=== PATIENT | male | born 1985 | race Caucasian/White ===

== ENCOUNTER → 2017-05-30 | Outpatient (CLI) | payer OTHER | END | disposition home or self-care (01) | LOC: C.LAB1850 13:07 | PROVIDERS: ATTEND Physical Medicine & Rehabilitation | DX: R19.7 Diarrhea, unspecified (principal) ==

== ENCOUNTER → 2017-10-16 | Outpatient (CLI) | payer OTHER ==
[~2017-10-16] MED LIST: CETI10TA84 PO
[2017-10-16 10:34] LABS: BASO % 0.7 %; BASO ABS # 0.04 K/uL (0-0.2); EOS % 2.6 %; EOS ABS # 0.15 K/uL (0-0.5); HEMATOCRIT 45.4 % (42-52); HEMOGLOBIN 15.5 g/dL (14.0-18.0); IG# 0.01 K/uL (0.00-0.02); LYMPH % 33.7 %; LYMPH ABS # 1.94 K/uL (1.2-3.4); MEAN CELL VOLUME 87.6 fL (80-100); MEAN CORPUSCULAR HEMOGLOBIN 29.9 pg (25-34); MEAN CORPUSCULAR HGB CONC 34.1 g/dl (32-36); MEAN PLATELET VOLUME 12.1 fL (7.4-10.4); MONO % 8.3 %; MONO ABS # 0.48 K/uL (0.11-0.59); NEUT % 54.5 %; NEUT ABS # 3.14 K/uL (1.4-6.5); PLATELET COUNT 236 K/uL (130-400); RED CELL DISTRIBUTION WIDTH CV 12.4 % (11.5-14.5); RED CELL DISTRIBUTION WIDTH SD 39.8 fL (36.4-46.3); WHITE BLOOD COUNT 5.76 K/uL (4.8-10.8)
[2017-10-16 10:54] LABS: ALBUMIN 3.7 gm/dl (3.4-5.0); TOTAL PROTEIN 7.3 gm/dl (6.4-8.2)
--- NOTE | 2017-11-07 13:49 | CODING QUERY NO DIAGNOSIS ---
TREATMENT RENDERED WITHOUT A DIAGNOSIS To promote full compliance with coding requirements relating to patient care, physician participation is requested in all cases of pre coder uncertainty. Please assist us with providing a diagnosis/symptom for the test(s) below: A diagnosis/symptom was not documented on your Order. A valid diagnosis/symptom is required to bill all insurances. Please remember that we are unable to code a diagnosis of rule out, probable, possible, questionable, or suspected. Tests that require a diagnosis: DOS: 10/16/17 * CBC W/ AUTO DIFF DIAGNOSIS: * ERYTHROCYTE SEDIMENTATION RATE DIAGNOSIS: * C-REACTIVE PROTEIN DIAGNOSIS: * LIVER PROFILE DIAGNOSIS: Provider Signature: Date: Thank you Ashli Hurd Health Information Management Once completed, please kindly fax back to [phone] For questions please call [phone]
== END | disposition home or self-care (01) ==
LOC: C.LAB1850 09:21
PROVIDERS: ATTEND Family Medicine
DX: K92.1 Melena (principal)

== ENCOUNTER → 2017-10-30 | Outpatient (CLI) | payer OTHER | END | disposition home or self-care (01) | LOC: C.LAB1850 11:15 | PROVIDERS: ATTEND Registered Nurse | DX: K62.5 Hemorrhage of anus and rectum (principal); R79.82 Elevated C-reactive protein (CRP) ==

== ENCOUNTER → 2017-11-21 | Day surgery (SDC) | payer OTHER ==
[2017-11-14 14:17] VITALS: Ht 167.6 cm; Wt 65.9 kg
[~2017-11-21] VITALS: Ht 167.6 cm; Wt 65.9 kg
[~2017-11-21] MED LIST changes: +LIDOCAINE HCL 2% 2 ML VIAL (20MG/ML) ONE; +MIDAZOLAM HCL 1 MG/ML 2ML VIAL ONE; +ONDANSETRON INJ 2 MG/ML 2 ML VIAL ONE; +PROPOFOL IV EMULSION 10 MG/ML 20 ML VIAL ONE; +SODIUM CHLORIDE 0.9% 500ML 500 ML IV ONE
--- NOTE | 2017-11-21 13:30 | Endo History and Physical ---
History & Physical Date of Service: Nov 21, 2017. Chief Complaint: Bright red blood per rectum, chronic anal fissure Referring Physician: Bernard History of Present Illness 32 yo CM who presents for EGD and Colonoscopy secondary to Bright red blood per rectum, Elevated CRP and Chronic anal fissure. Past Surgical History Hx Cardiac Surgery: No Hx Internal Defibrillator: No Hx Pacemaker: No Hx Abdominal Surgery: No Hx of Implantable Prosthesis: No Hx Post-Op Nausea and Vomiting: No Hx Cancer Surgery: No Hx Thoracic Surgery: No Hx Orthopedic: No Hx Urinary Tract Surgery: No Family History Colon CA, IBD Social History Smoking Status: Never Smoker Hx Substance Use: No Hx Alcohol Use: Yes (OCCASIONAL) Allergies Coded Allergies: No Known Allergies (Unverified , 11/14/17) Current Medications Reported Home Medications Medications Dose Route/Sig Max Daily Dose Days Date Category Zyrtec (Cetirizine HCl) 10 Mg Tab 10 Mg PO DAILY PRN 11/14/17 Reported Vital Signs Weight (Kilograms): 65.91 Height (Feet): 5 Height (Inches): 6 Date Time Temp Pulse Resp B/P (MAP) Pulse Ox O2 Delivery O2 Flow Rate FiO2 11/21/17 13:02 36.7 73 16 127/79 (95) 96 Room Air Physical Exam General Appearance: WD/WN, no apparent distress Respiratory/Chest: Auscultation: breath sounds normal Cardiovascular: Heart Auscultation: RRR Abdomen: Bowel Sounds: normal Inspection & Palpation: soft, non-distended, no tenderness, guarding & rebound Assessment and Plan Assessment: 32 yo CM who presents for EGD and Colonoscopy secondary to Bright red blood per rectum, Elevated CRP and Chronic anal fissure. Plan: Proceed with EGD and colonoscopy.
--- NOTE | 2017-11-21 14:29 | Discharge Instructions ---
Endoscopy Patient Instructions Date / Procedure(s) Performed Nov 21, 2017. Colonoscopy, EGD Allergy Information Coded Allergies: No Known Allergies (Unverified , 11/14/17) Discharge Date / Findings Nov 21, 2017. Colonoscopy: Colon polyp EGD: Esophagitis, Hiatal hernia, Gastritis with biopsies, Duodenal biopsies Medication Instructions 1) Start Protonix 40mg by mouth each morning 1/2 hour prior to breakfast. 2) OK to resume all other medications today as prescribed Reported Home Medications Medications Dose Route/Sig Max Daily Dose Days Date Category Zyrtec (Cetirizine HCl) 10 Mg Tab 10 Mg PO DAILY PRN 11/14/17 Reported Provider Instructions Activity Restrictions - No exercising or heavy lifting for 24 hours. - Do not drink alcohol the day of the procedure. - Do not drive a car or operate machinery until the day after the procedure. - Do not make any important decisions or sign important papers in 24 hours after the procedure. Following Day: - Return to full activity which may include returning to work/school. Diet Start your diet with liquids and light foods (jello, soup, juice, toast). Then eat your usual diet if not nauseated. Treatment For Common After Affects For mild abdominal pain, bloating, or excessive gas: - Rest - Eat lightly - Lie on right side Follow-Up Information Follow-up with Bernard as scheduled Anesthesia Information What You Should Know You have had a procedure that required some medicine to reduce anxiety and discomfort. This treatment is called moderate sedation. After receiving the treatment, you may be sleepy, but you will be able to breathe on your own. The effects of the treatment may last for several hours. Follow these instructions along with Activity/Diet recommendations noted above: * Do NOT do anything where dizziness or clumsiness would be dangerous. * Rest quietly at home today, then you can be up and about tomorrow. * Have a responsible person stay with you the rest of today. * You may have had an I.V. today. If so, you may take the dressing off later today. Recommendations Call your doctor if: * Trouble breathing * Continuous vomiting for more than 24 hours * Temperature above 101 degrees * Severe abdominal pain or bloating * Pain not relieved by pain medicine ordered * There is increased drainage or redness from any incision * A large amount of rectal bleeding greater than 2-3 tablespoons. (If you had a polyp/s removed or have hemorrhoids, a small amount of blood - from the rectum is to be expected.) * You have any unanswered questions or concerns. IN THE EVENT OF A SERIOUS EMERGENCY, GO TO THE NEAREST EMERGENCY ROOM Your discharge instructions were prepared by provider Matthew Ng. Patient Instructions Signature Page Miguel Richards Patient (or Guardian) Signature/Date: I have read and understand the instructions given to me by my caregivers. Caregiver/RN/Doctor Signature/Date: The above-named patient and/or guardian has received patient instructions on this date. + Original Patient Signature Page (only) stays with chart. Please make copy for patient.
--- NOTE | 2017-11-21 14:39 | GI REPORT ---
Patient Name: Miguel Richards Procedure Date: 11/21/2017 12:58 PM Date of : 1985 Admit Type: Outpatient Age: 32 Gender: Male Attending MD: Matthew Ng DO Procedure: Upper GI endoscopy Providers: Matthew Ng DO Referring MD: Kaye Stewart Indications: Gastrointestinal bleeding of unknown origin Medicines: Monitored Anesthesia Care Complications: No immediate complications. Estimated Blood Loss: Estimated blood loss: none. Procedure: Pre-Anesthesia Assessment: - Prior to the procedure, a History and Physical was performed, and patient medications and allergies were reviewed. The patient's tolerance of previous anesthesia was also reviewed. The risks and benefits of the procedure and the sedation options and risks were discussed with the patient. All questions were answered, and informed consent was obtained. Prior Anticoagulants: The patient has taken no previous anticoagulant or antiplatelet agents. ASA Grade Assessment: I - A normal, healthy patient. After reviewing the risks and benefits, the patient was deemed in satisfactory condition to undergo the procedure. After obtaining informed consent, the endoscope was passed under direct vision. Throughout the procedure, the patient's blood pressure, pulse, and oxygen saturations were monitored continuously. The scope was introduced through the mouth, and advanced to the second part of duodenum. The upper GI endoscopy was accomplished without difficulty. The patient tolerated the procedure well. Findings: LA Grade B (one or more mucosal breaks greater than 5 mm, not extending between the tops of two mucosal folds) esophagitis with no bleeding was found. A small hiatal hernia was present. Localized moderate inflammation characterized by erythema was found in the gastric antrum. Biopsies were taken with a cold forceps for histology. Localized moderately scalloped mucosa was found in the second portion of the duodenum. Biopsies for histology were taken with a cold forceps for evaluation of celiac disease. Impression: - LA Grade B reflux esophagitis. - Small hiatal hernia. - Gastritis. Biopsied. - Scalloped mucosa was found in the duodenum, consistent with celiac disease. Biopsied. Recommendation: - Resume previous diet. - Continue present medications. - Await pathology results. - Return to primary care physician as previously scheduled. Matthew Ng DO 11/21/2017 2:39:35 PM This report has been signed electronically. Note Initiated On: 11/21/2017 12:58 PM Number of Addenda: 0 I attest to the content of the Intraoperative Record and orders documented therein, exceptions below {[id number]}
[2017-11-21 14:42] VITALS: BP 120/70; PULSE 72; O2SAT 98
--- NOTE | 2017-11-21 14:44 | GI REPORT ---
Patient Name: Miguel Richards Procedure Date: 11/21/2017 1:07 PM Date of : 1985 Admit Type: Outpatient Age: 32 Gender: Male Attending MD: Matthew Ng DO Procedure: Colonoscopy Providers: Matthew Ng DO Referring MD: Kaye Stewart Indications: Rectal bleeding Medicines: Monitored Anesthesia Care Complications: No immediate complications. Estimated Blood Loss: Estimated blood loss: none. Procedure: Pre-Anesthesia Assessment: - Prior to the procedure, a History and Physical was performed, and patient medications and allergies were reviewed. The patient's tolerance of previous anesthesia was also reviewed. The risks and benefits of the procedure and the sedation options and risks were discussed with the patient. All questions were answered, and informed consent was obtained. Prior Anticoagulants: The patient has taken no previous anticoagulant or antiplatelet agents. ASA Grade Assessment: I - A normal, healthy patient. After reviewing the risks and benefits, the patient was deemed in satisfactory condition to undergo the procedure. After I obtained informed consent, the scope was passed under direct vision. Throughout the procedure, the patient's blood pressure, pulse, and oxygen saturations were monitored continuously. The scope was introduced through the anus and advanced to the terminal ileum. The colonoscopy was performed without difficulty. The patient tolerated the procedure well. The quality of the bowel preparation was good. The terminal ileum, ileocecal valve, appendiceal orifice, and rectum were photographed. Findings: The perianal and digital rectal examinations were normal. A 9 mm polyp was found in the ascending colon. The polyp was flat. The polyp was removed with a piecemeal technique using a hot snare. Resection and retrieval were complete. Impression: - One 9 mm polyp in the ascending colon, removed piecemeal using a hot snare. Resected and retrieved. Recommendation: - Resume previous diet. - Continue present medications. - Repeat colonoscopy for surveillance based on pathology results. - Return to primary care physician as previously scheduled. Matthew Ng DO 11/21/2017 2:43:45 PM This report has been signed electronically. Note Initiated On: 11/21/2017 1:07 PM Number of Addenda: 0 I attest to the content of the Intraoperative Record and orders documented therein, exceptions below {[id number]}
--- NOTE | 2017-11-21 15:04 | Anesthesiology Progress Note ---
Anesthesia Post Op Note Date & Time Nov 21, 2017 at 15:04 Vital Signs Pain Intensity: 0 Vital Signs Past 12 Hours Date Time Temp Pulse Resp B/P (MAP) Pulse Ox O2 Delivery O2 Flow Rate FiO2 11/21/17 14:42 72 20 120/70 (87) 98 Room Air 11/21/17 14:27 92 16 110/68 (82) 97 Room Air 11/21/17 14:12 92 16 94/55 (68) 97 Room Air 11/21/17 13:02 36.7 73 16 127/79 (95) 96 Room Air Notes Mental Status: alert / awake / arousable, participated in evaluation Pt Amnestic to Procedure: Yes Nausea / Vomiting: adequately controlled Pain: adequately controlled Airway Patency, RR, SpO2: stable & adequate BP & HR: stable & adequate Hydration State: stable & adequate Anesthetic Complications: no major complications apparent
== END | disposition home or self-care (01) ==
LOC: C.GI 12:27
PROVIDERS: ATTEND Internal Medicine
DX: K60.1 Chronic anal fissure (principal); D12.2 Benign neoplasm of ascending colon; K62.5 Hemorrhage of anus and rectum; K29.80 Duodenitis without bleeding; K29.60 Other gastritis without bleeding; K21.0 Gastro-esophageal reflux disease with esophagitis; K44.9 Diaphragmatic hernia without obstruction or gangrene; Z88.0 Allergy status to penicillin

== ENCOUNTER → 2017-12-04 | Outpatient (CLI) | payer OTHER ==
[~2017-12-04] MED LIST changes: -LIDOCAINE HCL 2% 2 ML VIAL (20MG/ML) ONE; -MIDAZOLAM HCL 1 MG/ML 2ML VIAL ONE; -ONDANSETRON INJ 2 MG/ML 2 ML VIAL ONE; -PROPOFOL IV EMULSION 10 MG/ML 20 ML VIAL ONE; -SODIUM CHLORIDE 0.9% 500ML 500 ML IV ONE
[2017-12-04 15:44] LABS: BASO % 0.5 %; BASO ABS # 0.03 K/uL (0-0.2); EOS % 1.1 %; EOS ABS # 0.07 K/uL (0-0.5); HEMATOCRIT 43.2 % (42-52); HEMOGLOBIN 14.9 g/dL (14.0-18.0); IG# 0.01 K/uL (0.00-0.02); LYMPH % 26.8 %; LYMPH ABS # 1.69 K/uL (1.2-3.4); MEAN CELL VOLUME 86.9 fL (80-100); MEAN CORPUSCULAR HGB CONC 34.5 g/dl (32-36); MEAN PLATELET VOLUME 12.2 fL (7.4-10.4); MONO % 8.6 %; MONO ABS # 0.54 K/uL (0.11-0.59); NEUT % 62.8 %; NEUT ABS # 3.97 K/uL (1.4-6.5); PLATELET COUNT 245 K/uL (130-400); RED CELL DISTRIBUTION WIDTH CV 12.7 % (11.5-14.5); RED CELL DISTRIBUTION WIDTH SD 40.4 fL (36.4-46.3); WHITE BLOOD COUNT 6.31 K/uL (4.8-10.8)
[2017-12-04 16:22] LABS: ALKALINE PHOSPHATASE 102 U/L (45-117); ALT/SGPT 28 U/L (12-78); AST/SGOT 19 U/L (15-37); BLOOD UREA NITROGEN 10 mg/dl (7-18); CALCIUM 8.9 mg/dl (8.5-10.1); CARBON DIOXIDE 29 mmol/L (21-32); CREATININE 0.82 mg/dl (0.60-1.40); GLUCOSE 94 mg/dl (70-99); POTASSIUM 3.5 mmol/L (3.5-5.1); SODIUM 139 mmol/L (136-145); TOTAL PROTEIN 7.4 gm/dl (6.4-8.2); TRANSFERRIN 264 mg/dl (200-360)
== END | disposition home or self-care (01) ==
LOC: MERGE 14:56 → C.LAB1850 14:56
PROVIDERS: ATTEND Registered Nurse
DX: K90.0 Celiac disease (principal)

== ENCOUNTER → 2017-12-04 | Outpatient (CLI) | payer OTHER | END | disposition home or self-care (01) | LOC: C.MAMM 14:18 | PROVIDERS: ATTEND Registered Nurse | DX: K90.0 Celiac disease (principal); M81.0 Age-related osteoporosis without current pathological fracture; M85.88 Other specified disorders of bone density and structure, other site ==